=== PATIENT | female | born 1975 | race Caucasian/White ===

== ENCOUNTER 2020-02-01 07:51 | Outpatient (CLI) | payer MEDICARE, SELFPAY ==
--- NOTE | ~2020-02-01 | XR_ITS ---
EXAMINATION: XR abdomen/kub 1V INDICATION: Microscopic hematuria TECHNIQUE: Supine views of the abdomen were obtained on 2 radiographs. COMPARISON: None FINDINGS: The bowel gas pattern is normal. There are changes of gastric lap band surgery. Cholecystec iggy clips are noted in the right upper quadrant. No abnormal calcifications are seen. IMPRESSION: 1. No radiographic correlate for the patient's symptoms. Reviewed, dictated and finalized at location A.
--- NOTE | ~2020-02-01 | CT_ITS ---
EXAMINATION: CT abdomen pelvis wo/w con DATE: 02/01/2020 08:57 INDICATION: Microscopic hematuria, lower abdominal pain TECHNIQUE: Computed tomography (CT) of the abdomen and pelvis was performed without intravenous contr ast. CT of the abdomen and pelvis was then performed with a total of 130 mL Omnipaque 350 intravenous contrast using a double-bolus technique for simultaneous opacification of the renal parenchyma and r enal collecting system. The dose-length product (DLP) was 2394.74 mGy-cm. Automated exposure control and iterative reconstruction technique were employed. COMPARISON: None FINDINGS: The lung bases are clear. The heart size is normal. There are changes of gastric lap band p rocedure. The liver, spleen, pancreas, and adrenal glands are normal. The gallbladder is surgically a bsent. The kidneys are unremarkable. No suspicious renal or urothelial lesion is identified. No stone s are identified in the kidneys, ureters, or bladder. There is no hydronephrosis or hydroureter. The left renal vein is somewhat tortuous coursing inferiorly before passing behind the aorta and entering the inferior vena cava. A moderate volume of colonic stool is present. There is mild lumbar spondylo sis. IMPRESSION: 1. No CT correlate for the patient's symptoms. Reviewed, dictated and finalized at location A.
[2020-02-01 08:32] LABS: Estimated Glomerular Filt Rate 60
== END 2020-02-01 07:52 | disposition home or self-care (01) ==
PROVIDERS: PCP Emergency Medicine; Visit Provider Urology
DX: R31.29 Other microscopic hematuria (principal)
CPT/HCPCS: 36415; 74018; 74178; Q9967